=== PATIENT | male | born 2000 | race Caucasian/White ===

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

== ENCOUNTER 2020-08-20 04:50 | Emergency (ER) | payer BC ==
--- NOTE | 2020-08-20 05:23 | EDM.PDOC ---
ED HPI GENERAL MEDICAL PROBLEM - General Chief Complaint: ENT Problem Stated Complaint: THINKS HE HAS AN STD Time Seen by Provider: 08/20/20 05:13 - History of Present Illness INITIAL COMMENTS - FREE TEXT/NARRATIVE: 19-year-old male presents the emergency room thinking he has an STD. Patient has had some mild burning and discomfort with urination. He had unprotected vaginal intercourse roughly 2 weeks ago. At this point he is having some some mild burning with urination he does not complain of any urethral drainage. Not had any fevers or chills. He is noted sensation in the back of the throat feels like he just ate peanut butter. He was checked for strep last week and this was negative. Has not had any throat pain per se no ear pain or problems like that he is has a little bit of numbness below his left lower lip. This is been present for about a week and does not seem to change. - Related Data Allergies Allergy/AdvReac Type Severity Reaction Status Date / Time lactose Allergy Diarrhea Verified 07/14/17 17:01 Home Meds: Home Meds Doxycycline [Vibramycin] 100 mg PO BID #13 tab 08/20/20 [Rx] Past Medical History - Past Health History Medical/Surgical History: Denies Medical/Surgical History Genitourinary History: Reports: Other (See Below) Other Genitourinary History: epididymitis Psychiatric History: Reports: None Social & Family History - Tobacco Use Smoking Status *Q: Never Smoker - Caffeine Use Caffeine Use: Reports: Soda ED ROS GENERAL - Review of Systems Review Of Systems: See Below Constitutional: Reports: No Symptoms HEENT: Reports: Other (An unusual sensation when he tries to swallow that is nonpainful and an area of numbness on his left lower lip) Respiratory: Reports: No Symptoms Cardiovascular: Reports: No Symptoms Endocrine: Reports: No Symptoms GI/Abdominal: Reports: No Symptoms : Reports: Dysuria. Denies: Frequency, Urgency Musculoskeletal: Reports: No Symptoms Skin: Reports: Other (As stated above) Neurological: Reports: No Symptoms ED EXAM, GENERAL - Physical Exam Exam: See Below Exam Limited By: No Limitations General Appearance: Alert, No Apparent Distress Respiratory/Chest: No Respiratory Distress, Lungs Clear, Normal Breath Sounds Cardiovascular: Regular Rate, Rhythm, No Edema, No Murmur GI/Abdominal: Normal Bowel Sounds, Soft, Non-Tender (Male) Exam: Normal Inspection, Circumcised. No: Inguinal Lymphadenopathy, Penile Lesions, Scrotal Swelling, Scrotum Tenderness (L), Scrotum Tenderness (R) Back Exam: Normal Inspection. No: CVA Tenderness (L), CVA Tenderness (R) Extremities: Normal Inspection, No Pedal Edema Course - Vital Signs Last Recorded V/S: Last Vital Signs Temp 36.4 C 08/20/20 05:00 Pulse 72 08/20/20 05:00 Resp 16 08/20/20 05:00 BP 124/75 08/20/20 05:00 Pulse Ox 100 08/20/20 05:00 - Orders/Labs/Meds Orders: Active Orders 24 hr Category Date Time Status GC/CHLAMYDIA BY PCR [MOLEC] Stat Lab 08/20/20 05:30 Received cefTRIAXone [Rocephin] 250 mg Med 08/20/20 06:15 Active Lidocaine 1% [Xylocaine 1%] 0.5 ml IM Q24H Medication Orders Ceftriaxone Sodium 250 mg/ (Lidocaine HCl 0.5 ml) 0 mg IM Q24H RENE Last Admin: 08/20/20 06:25 Dose: 250 syringe Documented by: JUANY Meds: Medications Generic Name Dose Route Start Last Admin Trade Name Freq PRN Reason Stop Dose Admin Ceftriaxone Sodium 250 mg/ 0 mg 08/20/20 06:15 08/20/20 06:25 Lidocaine HCl 0.5 ml IM 250 syringe Q24H RENE Administration Discontinued Medications Generic Name Dose Route Start Last Admin Trade Name Freq PRN Reason Stop Dose Admin Doxycycline Hyclate 100 mg 08/20/20 06:14 08/20/20 06:26 Vibramycin PO 08/20/20 06:15 100 mg ONETIME ONE Administration - Re-Assessments/Exams Free Text/Narrative Re-Assessment/Exam: 08/20/20 06:24 Urine PCR for GC and chlamydia is pending at this point it can take another hour and a half for this to get resulted. The patient needs to be at work shortly we will go ahead and treat him empirically with 150 mg of Rocephin and doxycycline 100 mg twice daily for 7 days. Explained to the patient that other things can develop if he develops blisters or gets that sharp pain below his lip this should be checked immediately. Departure - Departure Time of Disposition: 06:25 Disposition: Home, Self-Care Clinical Impression: Possible exposure to STD - Discharge Information Prescriptions: Doxycycline [Vibramycin] 100 mg PO BID #13 tab Referrals: Desmond Epps MD [Primary Care Provider] - Forms: ED Department Discharge Additional Instructions: Return to the emergency room with any questions problems or worsening symptoms. Take the doxycycline as directed. Take until all gone. Your first dose was given here in the emergency room. Follow-up with your regular doctor in 1 week for recheck. Sepsis Event Note (ED) - Evaluation Sepsis Screening Result: No Definite Risk - Focused Exam Vital Signs: Vital Signs Temp Pulse Resp BP Pulse Ox 08/20/20 05:00 36.4 C 72 16 124/75 100 - My Orders Last 24 Hours: My Active Orders 08/20/20 05:30 GC/CHLAMYDIA BY PCR [MOLEC] Stat 08/20/20 06:15 cefTRIAXone [Rocephin] 250 mg Lidocaine 1% [Xylocaine 1%] 0.5 ml IM Q24H - Assessment/Plan Last 24 Hours: My Active Orders 08/20/20 05:30 GC/CHLAMYDIA BY PCR [MOLEC] Stat 08/20/20 06:15 cefTRIAXone [Rocephin] 250 mg Lidocaine 1% [Xylocaine 1%] 0.5 ml IM Q24H
[2020-08-20 05:30] VITALS: BP 124/75; PULSE 72
[2020-08-20] MEDS ORDERED: Doxycycline 100 MG Cap PO ONE (06:14)
[2020-08-20] MEDS ORDERED: cefTRIAXone 250 MG, Lidocaine 1% 0.5 ML IM SCH ×2 (06:15)
[2020-08-20 07:35] LABS: C. TRACHOMATIS BY PCR DETECTED
[2020-08-20 07:39] LABS: N. GONORRHOEAE BY PCR NOT DETECTED
== END 2020-08-20 06:37 | disposition home or self-care (01) ==
LOC: JD.ED 04:50
DX: A55 Chlamydial lymphogranuloma (venereum) (principal); Z91.048 Other nonmedicinal substance allergy status
CPT/HCPCS: 87491; 87591; 96372; 99283; A9270; J0696; J2001